=== PATIENT | female | born 1950 | race Caucasian/White ===

== ENCOUNTER 2020-08-30 06:25 | Day surgery (SDC) | payer BC, SELFPAY ==
[2020-08-25 11:01] VITALS: BMI 26.1
--- NOTE | 2020-08-26 12:59 | HO.ANESPROP2 ---
Documented by User: Margaret Rodriguez 08/26/20 13:36 HPI - Anesthesia Eval Consult details Narrative: 70yo F for Colonoscopy [facility] Past Medical History Medical History Breast cancer Mendoza's thyroiditis History of chemotherapy Surgical History Surgical History History of lumpectomy of right breast Hx of colonoscopy Social History Social History Advance Directives: No Advance Directives Information Provided: No Advance Directives on File: No Recently lost weight without trying: No Meds Allergies Allergy/AdvReac Type Severity Reaction Status Date / Time ciprofloxacin [From Cipro] Allergy Unknown Verified 08/25/20 10:57 Penicillins Allergy Unknown Verified 08/25/20 10:57 Sulfa (Sulfonamide Allergy Unknown Verified 08/25/20 10:57 Antibiotics) Home Medications Medication Instructions Recorded Confirmed Last Taken Type acetaminophen [Tylenol] 650 mg PO Q6H PRN 08/25/20 08/25/20 Unknown History ascorbic acid (vitamin C) [Vitamin 500 mg PO DAILY 08/25/20 08/25/20 Unknown History C] calcium 600 mg PO DAILY 08/25/20 08/25/20 Unknown History clobetasol 1 appl TOPICAL DIRECTED 08/25/20 08/25/20 Unknown History levothyroxine [Synthroid] 1 tab PO DAILY 08/25/20 08/25/20 Unknown History multivitamin with minerals 1 cap PO DAILY 08/25/20 08/25/20 Unknown History valacyclovir 1 tab PO DAILY 08/25/20 08/25/20 Unknown History Exam Exam Date and Time: August 26, 2020 1259 Height,Weight and Vital Signs: Height 5 ft 5 in Weight 71.214 kg Assessment and Plan Assessment Anesthesia Assessment: Chart Reviewed Documented by User: Chago Casey 08/30/20 07:22 PMFSH Past Medical History Medical History Breast cancer Mendoza's thyroiditis History of chemotherapy Surgical History Surgical History History of lumpectomy of right breast Hx of colonoscopy Social History Social History Advance Directives: No Advance Directives Information Provided: No Advance Directives on File: No Recently lost weight without trying: No Meds Allergies Allergy/AdvReac Type Severity Reaction Status Date / Time ciprofloxacin [From Cipro] Allergy Unknown Verified 08/25/20 10:57 Penicillins Allergy Unknown Verified 08/25/20 10:57 Sulfa (Sulfonamide Allergy Unknown Verified 08/25/20 10:57 Antibiotics) Home Medications Medication Instructions Recorded Confirmed Last Taken Type acetaminophen [Tylenol] 650 mg PO Q6H PRN 08/25/20 08/25/20 Unknown History ascorbic acid (vitamin C) [Vitamin 500 mg PO DAILY 08/25/20 08/25/20 Unknown History C] calcium 600 mg PO DAILY 08/25/20 08/25/20 Unknown History clobetasol 1 appl TOPICAL DIRECTED 08/25/20 08/25/20 Unknown History levothyroxine [Synthroid] 1 tab PO DAILY 08/25/20 08/25/20 Unknown History multivitamin with minerals 1 cap PO DAILY 08/25/20 08/25/20 Unknown History valacyclovir 1 tab PO DAILY 08/25/20 08/25/20 Unknown History Exam Airway Mallampati Class: II TM Dist: >3cm Neck ROM: Full Loose/Missing/Broken Teeth: No Heart: [id number] Lungs: cta b/l Assessment and Plan Assessment Anesthesia Assessment: Anesthesia Plan Discussed, PAT Visit and Chart Reviewed Final Anesthetic Review NPO: Yes ASA Class: II Final Preanesthetic Review: No Changes in Pt Med Stat, Meds/Allgs Chart Reviewed, Consent Obtained/Reviewed and Anes Risks/Benef Reviewed Patient Risk: Intermediate Procedure Risk: Low Assessment/Block/Sedation in SS: Assess/Block/Sedation-SS Anesthetic Plan Anesthetic Plan: MAC:, Regional Block and Agree w/ Assess. and Plan Disposition: Standard PACU
[2020-08-30 06:34] VITALS: BP 124/59; PULSE 72; RESP 18; TEMP 36.6; O2SAT 98
[2020-08-30] MEDS: Lactated Ringers 1,000 ML 100 ML IVCONT (06:51)
[2020-08-30 08:28] VITALS: BP 80/35; PULSE 65; RESP 16; TEMP 36.5; O2SAT 96
--- NOTE | 2020-08-30 08:31 | PM.OP ---
Brief Operative Note Date of Service: 08/30/20 Pre-op diagnosis: Screening Post-op diagnosis: other (Colon polyp) Procedure: Colonoscopy to the cecum and TI with snare polypectomy Surgeon: Ferny Honeycutt Anesthesia: MAC Was an Water Filtration Technician used for this Procedure?: No Estimated blood loss (mL): 1.0 Pathology: other (A. Ascending colon polyp) Condition: stable Disposition: PACU
[2020-08-30 08:43] VITALS: BP 99/54; PULSE 69; RESP 16; TEMP 36.5; O2SAT 98
--- NOTE | 2020-08-30 10:44 | OP_ITS ---
SURGEON: Ferny Honeycutt MD INDICATIONS: The patient presents for evaluation of colorectal cancer screening. Full consent has been obtained from her for this, including risks of bleeding and perforation. PREOPERATIVE DIAGNOSIS: Colorectal cancer screening. POSTOPERATIVE DIAGNOSIS: PROCEDURE PERFORMED: Colonoscopy to cecum and terminal ileum with snare polypectomy. ESTIMATED BLOOD LOSS: COMPLICATIONS: ANESTHESIA: Monitored anesthesia care. ASSISTANTS: SPECIMENS: POSTOPERATIVE DIAGNOSES: Colorectal cancer screening, small colon polyp, diverticulosis, and internal hemorrhoids. DESCRIPTION OF PROCEDURE: The patient was placed in the left lateral decubitus position. The digital rectal exam revealed no abnormalities. The Olympus video pediatric colonoscope was entered into the rectum and advanced easily to the cecum. Once in the cecum, I did identify normal-appearing cecal pouch with appendiceal orifice and a normal-appearing ileocecal valve. The terminal ileum was cannulated and appeared normal. The scope was withdrawn back in the colon. The entire cecum and ileocecal valve appeared normal. The scope was slowly withdrawn assessing all mucosal surfaces carefully. Preparation was excellent. In the proximal ascending colon, was a flat approximately 6 to 8 mm polyp, which was snared and recovered by suction. The polypectomy site appeared clean, without any sign of residual polyp nor bleeding. I did not visualize any other polyps, colitis, nor angiodysplasia. There was a mild amount of sigmoid diverticulosis. In the rectum, scope was retroflexed visualizing small internal hemorrhoids, but no other pathology. The scope was straightened out and withdrawn from the patient. She tolerated the procedure well and was returned to recovery area in stable condition. IMPRESSION: 1. Small colon polyp, status post snare polypectomy. 2. Diverticulosis. 3. Internal hemorrhoids. PLAN: The results of the pathology will be checked. If this is a tubular adenoma, I would recommend a followup colonoscopy in 5 years. If it is only hyperplastic, then I do not think she will need any further screening colonoscopies given the otherwise negative exam and negative family history. She was advised not to use any aspirin and NSAIDs for 1 week. MD TACOS March/RUTH / [id number]
== END 2020-08-30 09:15 | disposition home or self-care (01) ==
PROVIDERS: PCP Pediatrics; Visit Provider Internal Medicine
PROC: 0DJD8ZZ Inspection of Lower Intestinal Tract, Via Natural or Artificial Opening Endoscopic (ICD-10-PCS; CPT 45378; principal; 2020-08-30 07:30)
DX: Z12.11 Encounter for screening for malignant neoplasm of colon (principal); D12.2 Benign neoplasm of ascending colon; K57.30 Diverticulosis of large intestine without perforation or abscess without bleeding; K64.8 Other hemorrhoids; E06.3 Autoimmune thyroiditis; Z85.3 Personal history of malignant neoplasm of breast; Z92.21 Personal history of antineoplastic chemotherapy; Z92.3 Personal history of irradiation; Z79.899 Other long term (current) drug therapy; Z88.0 Allergy status to penicillin; Z88.2 Allergy status to sulfonamides
CPT/HCPCS: 45385; 88305